=== PATIENT | male | born 1980 | race Caucasian/White ===

== ENCOUNTER 2017-04-27 07:52 | Emergency (ER) | payer MEDICAID ==
[~2017-04-27] VITALS: Ht 167.6 cm; Wt 127.3 kg
[2017-04-27 08:11] VITALS: BP 157/108
[2017-04-27] MEDS ORDERED: CIPROFLOXACIN HCL 0.2%/HYDROCORT 1% 10 ML OTIC SUSPENSION AD ONE (09:00)
[2017-05-09 17:27] LABS: GLUCOSE,POINT OF CARE 128 MG/DL (70-110)
== END 2017-04-27 10:37 | disposition home or self-care (01) ==
LOC: EDUNIT# 07:52 → EMS 07:56
DX: H60.91 Unspecified otitis externa, right ear (principal); E11.9 Type 2 diabetes mellitus without complications
CPT/HCPCS: 82962; 99283

== ENCOUNTER 2017-10-28 14:43 | Emergency (ER) | payer SELFPAY ==
[~2017-10-28] VITALS: Ht 170.2 cm; Wt 113.6 kg
[2017-10-28 15:37] LABS: GLUCOSE,POINT OF CARE 117 MG/DL (70-110)
[2017-10-28 16:17] LABS: APPEARANCE,URINE CLEAR (CLEAR); BILIRUBIN,URINE NEGATIVE (NEGATIVE); GLUCOSE, URINE (UA) NEGATIVE (NEGATIVE); KETONES,URINE NEGATIVE (NEGATIVE); LEUKOCYTE ESTERASE ,URINE SMALL (NEGATIVE); NITRATE,URINE NEGATIVE (NEGATIVE); OCCULT BLOOD,URINE TRACE (NEGATIVE); PROTEIN,URINE NEGATIVE (NEGATIVE)
[2017-10-28] MEDS ORDERED: ACETAMINOPHEN/CODEINE 300-30 MG TABLET PO ONE (16:30)
[2017-10-28 16:44] LABS: BACTERIA,URINE None Seen /HPF (None Seen); RBC,URINE 0-2 /HPF (0-2); SQUAMOUS EPITHELIAL CELL,UR Moderate /LPF (None Seen)
[2017-10-28] MEDS ORDERED: CefTRIAXone SODIUM 1 GM/VIAL IM ONE (17:00)
[2017-10-28] MEDS ORDERED: LIDOCAINE HCL/PF 1% 2 ML VIAL IM ONE (17:00)
[2017-10-28] MEDS ORDERED: DOXYCYCLINE 100 MG CAPSULE PO ONE (17:00)
[2017-10-28 17:26] VITALS: BP 141/81
== END 2017-10-28 17:56 | disposition home or self-care (01) ==
LOC: EMS 14:44
DX: L98.8 Other specified disorders of the skin and subcutaneous tissue (principal); N48.89 Other specified disorders of penis; E11.9 Type 2 diabetes mellitus without complications
CPT/HCPCS: 81001; 82962; 96372; 99283; J0696; J3490

== ENCOUNTER 2019-05-17 11:58 | Inpatient (IN) | payer MEDICAID ==
[~2019-05-17] VITALS: Ht 172.7 cm; Wt 118.5 kg
[2019-05-17] MEDS ORDERED: METF-960 PO (12:31)
[2019-05-17 13:51] LABS: GLUCOSE,POINT OF CARE 211 MG/DL (70-110)
[2019-05-17 15:10] LABS: BASOPHILS % (AUTO) 0.4 % (0.0-2.0); EOSINOPHILS % (AUTO) 0.1 % (1.0-6.0); HEMATOCRIT 44.6 % (41-53); HEMOGLOBIN 14.9 g/dL (13.5-17.5); LYMPHOCYTES # (AUTO) 1.7 K/uL (1.0-4.8); LYMPHOCYTES % (AUTO) 7.7 % (22.0-44.0); MEAN CORPUSCULAR HEMOGLOBIN 29.3 pg (26.0-34.0); MEAN CORPUSCULAR HGB CONC 33.4 G/dL (31.0-37.0); MEAN CORPUSCULAR VOLUME 88 fL (80-100); MONOCYTES # (AUTO) 2.1 K/uL (0.1-1.0); MONOCYTES % (AUTO) 9.8 % (2.0-9.0); NEUTROPHILS # (AUTO) 17.8 K/uL (1.8-7.7); PLATELET COUNT (AUTO) 229 K/uL (150-450); RED BLOOD CELL COUNT(AUTO) 5.07 MIL/uL (4.50-5.90); RED CELL DISTRIBUTION WIDTH 14.1 % (11.5-14.5)
[2019-05-17 15:23] LABS: APPEARANCE,URINE CLOUDY (CLEAR); GLUCOSE, URINE (UA) 100 mg/dL (NEGATIVE); KETONES,URINE TRACE mg/dL (NEGATIVE); LEUKOCYTE ESTERASE ,URINE MODERATE (NEGATIVE); NITRATE,URINE NEGATIVE (NEGATIVE); OCCULT BLOOD,URINE LARGE (NEGATIVE); PROTEIN,URINE SEE CONFIRM (NEGATIVE)
[2019-05-17 15:23] LABS: ALANINE AMINOTRANSFERASE 39 U/L (12-78); ALBUMIN 3.2 g/dL (3.4-5.0); ALKALINE PHOSPHATASE 121 U/L (46-116); ANION GAP 7 mmol/L (8-16); ASPARTATE AMINOTRANSFERASE 24 U/L (15-37); BILIRUBIN,TOTAL 0.7 mg/dL (0.1-1.0); CALCIUM, TOTAL 8.7 mg/dL (8.8-10.5); CARBON DIOXIDE 29 mmol/L (22-29); CHLORIDE 97 mmol/L (98-107); CREATININE 1.16 mg/dL (0.60-1.30); GLOMERULAR FILTR. RATE CALC > 60 mL/min (>60); GLUCOSE,RANDOM 189 mg/dL (70-110); POTASSIUM 3.8 mmol/L (3.5-5.1); SODIUM SERUM 133 mmol/L (136-145); TOTAL PROTEIN, SERUM 8.6 g/dL (6.4-8.2)
[2019-05-17 15:29] LABS: UREA NITROGEN, BLOOD 11 mg/dL (7-18)
[2019-05-17 15:30] LABS: BILIRUBIN,URINE PRELIM. POSITIVE (NEGATIVE)
[2019-05-17 15:42] LABS: LACTIC ACID 1.2 mmol/L (0.4-2.0)
[2019-05-17] MEDS ORDERED: KETOROLAC TROMETHAMINE 30 MG/ML VIAL IVP ONE (15:45)
[2019-05-17] MEDS ORDERED: SODIUM CHLORIDE 0.9% 1,000 ML IV ONE (15:45)
[2019-05-17] MEDS ORDERED: ONDANSETRON HCL 4 MG/2 ML VIAL IVP ONE (15:45)
[2019-05-17 15:49] LABS: RBC,URINE 26-50 /HPF (0-2); SULFOSALICYLIC ACID,URINE 4+ (Negative)
[2019-05-17 15:50] LABS: BACTERIA,URINE Moderate /HPF (None Seen); SQUAMOUS EPITHELIAL CELL,UR Few /LPF (None Seen); WBC,URINE 26-50 /HPF (0-5)
[2019-05-17 16:06] LABS: LIPASE 73 U/L (73-393)
[2019-05-17 16:16] LABS: INFLUENZA TYPE A NEGATIVE FOR TYPE A (NEGATIVE); INFLUENZA TYPE B NEGATIVE FOR TYPE B (NEGATIVE)
[2019-05-17] MEDS ORDERED: IOVERSOL 350 MG/ML 150 ML VIAL ONE (16:53)
[2019-05-17] MEDS ORDERED: CefTRIAXone 1 GM/DEXTROSE 50 ML IV ONE (18:00)
[2019-05-17] MEDS ORDERED: LEVOFLOXACIN 500 MG/D5% WATER 100 ML IV ONE (18:00)
[2019-05-17] MEDS ORDERED: ACETAMINOPHEN 325 MG TABLET PO PRN (20:15)
[2019-05-17] MEDS ORDERED: 0.9% SODIUM CHLORIDE 10 ML SYRINGE IVP PRN (20:15)
[2019-05-17] MEDS ORDERED: INFLUENZA VIRUS VACCINE QVS 2019-20 (3YR+)/PF 60 MCG/0.5 ML SYRINGE IM ONE (23:45)
[2019-05-18] VITALS (7 sets, daily range): BP systolic 118–146; BP diastolic 62–82
[2019-05-18] MEDS ORDERED: ZOLPIDEM TARTRATE 5 MG TABLET PO PRN (00:30)
[2019-05-18] MEDS ORDERED: ONDANSETRON HCL 4 MG/2 ML VIAL IVP PRN (00:30)
[2019-05-18] MEDS ORDERED: 0.9% SODIUM CHLORIDE 10 ML SYRINGE IVP PRN (00:30)
[2019-05-18] MEDS ORDERED: DEXTROSE 50%-WATER 25 GM/50 ML SYRINGE IVP PRN (00:30)
[2019-05-18] MEDS ORDERED: *CLINICAL-LEVOFLOXACIN IVPB DOSING CLINICAL ONE (00:30)
[2019-05-18] MEDS: ACETAMINOPHEN 325 MG TABLET PO PRN ×3 (06:11→21:52)
[2019-05-18] MEDS: INSULIN LISPRO 100 UNITS/ML SQ PRN ×4 (06:14→21:11)
[2019-05-18 06:24] LABS: BASOPHILS % (AUTO) 0.3 % (0.0-2.0); EOSINOPHILS % (AUTO) 0.2 % (1.0-6.0); HEMOGLOBIN 14.1 g/dL (13.5-17.5); LYMPHOCYTES # (AUTO) 1.1 K/uL (1.0-4.8); LYMPHOCYTES % (AUTO) 9.7 % (22.0-44.0); MEAN CORPUSCULAR HGB CONC 33.7 G/dL (31.0-37.0); MEAN CORPUSCULAR VOLUME 89 fL (80-100); MONOCYTES # (AUTO) 1.3 K/uL (0.1-1.0); MONOCYTES % (AUTO) 12.3 % (2.0-9.0); NEUTROPHILS # (AUTO) 8.5 K/uL (1.8-7.7); NEUTROPHILS % (AUTO) 77.5 % (40.0-70.0); PLATELET COUNT (AUTO) 204 K/uL (150-450); RED BLOOD CELL COUNT(AUTO) 4.72 MIL/uL (4.50-5.90); RED CELL DISTRIBUTION WIDTH 14.2 % (11.5-14.5)
[2019-05-18 06:25] LABS: GLUCOMETER DEV NAME(LOC) 6N.1; GLUCOSE,POINT OF CARE 154 MG/DL (70-110)
[2019-05-18] MEDS ORDERED: PNEUMOCOCCAL VACCINE POLYVALENT 0.5 ML VIAL [PPSV23] IM ONE (06:30)
[2019-05-18 06:45] LABS: ALANINE AMINOTRANSFERASE 34 U/L (12-78); ALBUMIN 2.6 g/dL (3.4-5.0); ALKALINE PHOSPHATASE 100 U/L (46-116); ANION GAP 8 mmol/L (8-16); ASPARTATE AMINOTRANSFERASE 29 U/L (15-37); BILIRUBIN,TOTAL 0.5 mg/dL (0.1-1.0); CALCIUM, TOTAL 8.3 mg/dL (8.8-10.5); CARBON DIOXIDE 28 mmol/L (22-29); CHLORIDE 99 mmol/L (98-107); CREATININE 1.09 mg/dL (0.60-1.30); GLOMERULAR FILTR. RATE CALC > 60 mL/min (>60); GLUCOSE,RANDOM 156 mg/dL (70-110); POTASSIUM 3.5 mmol/L (3.5-5.1); SODIUM SERUM 135 mmol/L (136-145); TOTAL PROTEIN, SERUM 7.7 g/dL (6.4-8.2); UREA NITROGEN, BLOOD 12 mg/dL (7-18)
[2019-05-18] MEDS ORDERED: MetFORMIN HCL 500 MG TABLET PO SCH (08:00)
[2019-05-18] MEDS: ENOXAPARIN SODIUM 40 MG/0.4 ML PF SYRINGE SQ SCH (08:23)
[2019-05-18] MEDS: PANTOPRAZOLE SODIUM 40 MG DR TABLET PO SCH (08:23)
[2019-05-18] MEDS ORDERED: DOCUSATE SODIUM 100 MG CAPSULE PO SCH (09:00)
[2019-05-18] MEDS: CefTRIAXone 1 GM/DEXTROSE 50 ML IV SCH (11:54)
[2019-05-18] MEDS: SODIUM CHLORIDE 0.9% 1,000 ML IV SCH ×2 (11:57→21:51)
[2019-05-18 12:15] LABS: GLUCOMETER DEV NAME(LOC) 6N.1; GLUCOSE,POINT OF CARE 151 MG/DL (70-110)
[2019-05-18] MEDS ORDERED: LEVOFLOXACIN 500 MG/D5% WATER 100 ML IV SCH (20:00)
[2019-05-18] MEDS ORDERED: LEVOFLOXACIN 750 MG/D5% WATER 150 ML IV SCH (20:00)
[2019-05-18 20:01] LABS: GLUCOMETER DEV NAME(LOC) 6N.1; GLUCOSE,POINT OF CARE 171 MG/DL (70-110)
[2019-05-19 04:25] VITALS: BP 131/74
[2019-05-19 05:08] LABS: GLUCOMETER DEV NAME(LOC) 6N.1; GLUCOSE,POINT OF CARE 204 MG/DL (70-110)
[2019-05-19 06:03] LABS: GLUCOMETER DEV NAME(LOC) 4E.2; GLUCOSE,POINT OF CARE 181 MG/DL (70-110)
[2019-05-19] MEDS: INSULIN LISPRO 100 UNITS/ML SQ PRN ×3 (06:33→17:43)
[2019-05-19 07:55] LABS: BASOPHILS % (AUTO) 0.3 % (0.0-2.0); EOSINOPHILS % (AUTO) 0.5 % (1.0-6.0); HEMATOCRIT 41.2 % (41-53); HEMOGLOBIN 14.1 g/dL (13.5-17.5); LYMPHOCYTES # (AUTO) 1.5 K/uL (1.0-4.8); LYMPHOCYTES % (AUTO) 18.3 % (22.0-44.0); MEAN CORPUSCULAR HEMOGLOBIN 30.3 pg (26.0-34.0); MEAN CORPUSCULAR HGB CONC 34.3 G/dL (31.0-37.0); MEAN CORPUSCULAR VOLUME 88 fL (80-100); MONOCYTES # (AUTO) 1.5 K/uL (0.1-1.0); MONOCYTES % (AUTO) 17.4 % (2.0-9.0); NEUTROPHILS # (AUTO) 5.3 K/uL (1.8-7.7); NEUTROPHILS % (AUTO) 63.5 % (40.0-70.0); PLATELET COUNT (AUTO) 224 K/uL (150-450); RED BLOOD CELL COUNT(AUTO) 4.66 MIL/uL (4.50-5.90); RED CELL DISTRIBUTION WIDTH 13.9 % (11.5-14.5)
[2019-05-19 07:59] LABS: ANION GAP 9 mmol/L (8-16); CARBON DIOXIDE 25 mmol/L (22-29); CHLORIDE 101 mmol/L (98-107); CREATININE 0.91 mg/dL (0.60-1.30); GLOMERULAR FILTR. RATE CALC > 60 mL/min (>60); GLUCOSE,RANDOM 160 mg/dL (70-110); POTASSIUM 3.6 mmol/L (3.5-5.1); SODIUM SERUM 135 mmol/L (136-145); UREA NITROGEN, BLOOD 9 mg/dL (7-18)
[2019-05-19 08:10] VITALS: BP 144/85
[2019-05-19] MEDS: PANTOPRAZOLE SODIUM 40 MG DR TABLET PO SCH (08:49)
[2019-05-19] MEDS: SODIUM CHLORIDE 0.9% 1,000 ML IV SCH ×2 (08:49→18:44)
[2019-05-19] MEDS: ENOXAPARIN SODIUM 40 MG/0.4 ML PF SYRINGE SQ SCH (08:49)
[2019-05-19] MEDS: CefTRIAXone 1 GM/DEXTROSE 50 ML IV SCH (11:23)
[2019-05-19] MEDS: ACETAMINOPHEN 325 MG TABLET PO PRN ×2 (11:28→21:00)
[2019-05-19 11:40] VITALS: BP 129/85
[2019-05-19 14:49] LABS: GLUCOMETER DEV NAME(LOC) 6N.2; GLUCOSE,POINT OF CARE 160 MG/DL (70-110)
[2019-05-19 16:04] VITALS: BP 154/84
[2019-05-19 17:22] LABS: GLUCOMETER DEV NAME(LOC) 6N.2; GLUCOSE,POINT OF CARE 165 MG/DL (70-110)
[2019-05-19 19:30] VITALS: BP 126/79
[2019-05-19] MEDS: GuaiFENesin SR 600 MG ER TABLET PO SCH (21:05)
[2019-05-19 22:07] LABS: GLUCOMETER DEV NAME(LOC) 6N.2; GLUCOSE,POINT OF CARE 136 MG/DL (70-110)
[2019-05-19 23:30] VITALS: BP 117/65
[2019-05-20 04:45] VITALS: BP 133/73
[2019-05-20] MEDS: ACETAMINOPHEN 325 MG TABLET PO PRN (04:59)
[2019-05-20] MEDS: SODIUM CHLORIDE 0.9% 1,000 ML IV SCH (05:05)
[2019-05-20 07:50] VITALS: BP 121/70
[2019-05-20 08:06] LABS: ANION GAP 11 mmol/L (8-16); CALCIUM, TOTAL 8.4 mg/dL (8.8-10.5); CARBON DIOXIDE 23 mmol/L (22-29); CHLORIDE 100 mmol/L (98-107); CREATININE 0.73 mg/dL (0.60-1.30); GLOMERULAR FILTR. RATE CALC > 60 mL/min (>60); GLUCOSE,RANDOM 147 mg/dL (70-110); POTASSIUM 3.8 mmol/L (3.5-5.1); SODIUM SERUM 134 mmol/L (136-145); UREA NITROGEN, BLOOD 9 mg/dL (7-18)
[2019-05-20] MEDS: GuaiFENesin SR 600 MG ER TABLET PO SCH ×2 (08:10→20:26)
[2019-05-20] MEDS: ENOXAPARIN SODIUM 40 MG/0.4 ML PF SYRINGE SQ SCH (08:10)
[2019-05-20] MEDS: DOCUSATE SODIUM 100 MG CAPSULE PO PRN (08:10)
[2019-05-20] MEDS: PANTOPRAZOLE SODIUM 40 MG DR TABLET PO SCH (08:10)
[2019-05-20 08:27] LABS: BASOPHILS % (AUTO) 0.5 % (0.0-2.0); EOSINOPHILS % (AUTO) 1.6 % (1.0-6.0); HEMATOCRIT 43.3 % (41-53); HEMOGLOBIN 14.3 g/dL (13.5-17.5); LYMPHOCYTES # (AUTO) 2.4 K/uL (1.0-4.8); LYMPHOCYTES % (AUTO) 26.3 % (22.0-44.0); MEAN CORPUSCULAR HEMOGLOBIN 29.5 pg (26.0-34.0); MEAN CORPUSCULAR HGB CONC 33.1 G/dL (31.0-37.0); MEAN CORPUSCULAR VOLUME 89 fL (80-100); MONOCYTES # (AUTO) 1.6 K/uL (0.1-1.0); MONOCYTES % (AUTO) 17.7 % (2.0-9.0); NEUTROPHILS % (AUTO) 53.9 % (40.0-70.0); RED BLOOD CELL COUNT(AUTO) 4.87 MIL/uL (4.50-5.90); RED CELL DISTRIBUTION WIDTH 14.2 % (11.5-14.5)
[2019-05-20 08:42] LABS: PLATELET COUNT (AUTO) 207 K/uL (150-450)
[2019-05-20] MEDS: CefTRIAXone 1 GM/DEXTROSE 50 ML IV SCH (11:00)
[2019-05-20 11:20] VITALS: BP 105/84
[2019-05-20] MEDS: INSULIN LISPRO 100 UNITS/ML SQ PRN ×3 (12:14→21:37)
[2019-05-20] MEDS ORDERED: *CLINICAL-RX DOSING [ENTER DRUG IN COMMENTS] CLINICAL ONE (12:45)
[2019-05-20 13:30] LABS: GLUCOMETER DEV NAME(LOC) 6N.2; GLUCOSE,POINT OF CARE 162 MG/DL (70-110)
[2019-05-20] MEDS: MEROPENEM 1 GM in SODIUM CHLORIDE 0.9% 100 ML IV SCH ×2 (13:41→20:26)
[2019-05-20 15:51] VITALS: BP 133/60
[2019-05-20] MEDS: TraMADol HCL 50 MG TABLET PO PRN (16:50)
[2019-05-20 20:43] VITALS: BP 135/89
[2019-05-20 23:08] LABS: GLUCOMETER DEV NAME(LOC) 6N.2; GLUCOSE,POINT OF CARE 144 MG/DL (70-110)
[2019-05-20 23:30] VITALS: BP 138/79
[2019-05-21 04:00] VITALS: BP 160/77
[2019-05-21 05:57] LABS: BASOPHILS % (AUTO) 0.4 % (0.0-2.0); EOSINOPHILS % (AUTO) 1.8 % (1.0-6.0); HEMATOCRIT 42.4 % (41-53); HEMOGLOBIN 14.7 g/dL (13.5-17.5); LYMPHOCYTES # (AUTO) 2.5 K/uL (1.0-4.8); LYMPHOCYTES % (AUTO) 24.1 % (22.0-44.0); MEAN CORPUSCULAR HEMOGLOBIN 30.2 pg (26.0-34.0); MEAN CORPUSCULAR HGB CONC 34.6 G/dL (31.0-37.0); MEAN CORPUSCULAR VOLUME 87 fL (80-100); MONOCYTES # (AUTO) 1.3 K/uL (0.1-1.0); MONOCYTES % (AUTO) 12.5 % (2.0-9.0); NEUTROPHILS # (AUTO) 6.5 K/uL (1.8-7.7); NEUTROPHILS % (AUTO) 61.2 % (40.0-70.0); PLATELET COUNT (AUTO) 271 K/uL (150-450); RED BLOOD CELL COUNT(AUTO) 4.86 MIL/uL (4.50-5.90); RED CELL DISTRIBUTION WIDTH 13.9 % (11.5-14.5)
[2019-05-21] MEDS: MEROPENEM 1 GM in SODIUM CHLORIDE 0.9% 100 ML IV SCH ×3 (05:57→21:01)
[2019-05-21 06:02] LABS: ANION GAP 9 mmol/L (8-16); CALCIUM, TOTAL 8.7 mg/dL (8.8-10.5); CARBON DIOXIDE 26 mmol/L (22-29); CHLORIDE 99 mmol/L (98-107); CREATININE 0.91 mg/dL (0.60-1.30); GLOMERULAR FILTR. RATE CALC > 60 mL/min (>60); GLUCOSE,RANDOM 149 mg/dL (70-110); POTASSIUM 4.2 mmol/L (3.5-5.1); SODIUM SERUM 134 mmol/L (136-145); UREA NITROGEN, BLOOD 11 mg/dL (7-18)
[2019-05-21] MEDS: INSULIN LISPRO 100 UNITS/ML SQ PRN ×2 (06:10→18:21)
[2019-05-21 06:15] LABS: GLUCOMETER DEV NAME(LOC) 4E.2; GLUCOSE,POINT OF CARE 142 MG/DL (70-110)
[2019-05-21 07:07] LABS: GLUCOMETER DEV NAME(LOC) 6N.2; GLUCOSE,POINT OF CARE 153 MG/DL (70-110)
[2019-05-21 07:35] VITALS: BP 148/80
[2019-05-21] MEDS: ENOXAPARIN SODIUM 40 MG/0.4 ML PF SYRINGE SQ SCH (08:05)
[2019-05-21] MEDS: GuaiFENesin SR 600 MG ER TABLET PO SCH ×2 (08:06→20:58)
[2019-05-21] MEDS: PANTOPRAZOLE SODIUM 40 MG DR TABLET PO SCH (08:06)
[2019-05-21] MEDS: DOCUSATE SODIUM 100 MG CAPSULE PO PRN (08:06)
[2019-05-21] MEDS: TraMADol HCL 50 MG TABLET PO PRN (08:06)
[2019-05-21 11:15] VITALS: BP 130/78
[2019-05-21 13:08] LABS: GLUCOMETER DEV NAME(LOC) 6N.2; GLUCOSE,POINT OF CARE 108 MG/DL (70-110)
[2019-05-21 15:15] VITALS: BP 149/93
[2019-05-21 17:53] LABS: GLUCOMETER DEV NAME(LOC) 6N.2; GLUCOSE,POINT OF CARE 148 MG/DL (70-110)
[2019-05-21 19:35] VITALS: BP 131/77
[2019-05-21] MEDS: SULFAMETHOX/TRIMETH DS 800-160 MG/TABLET PO SCH (20:58)
[2019-05-21 22:04] LABS: GLUCOMETER DEV NAME(LOC) 6N.2; GLUCOSE,POINT OF CARE 126 MG/DL (70-110)
[2019-05-21 23:35] VITALS: BP 124/70
[2019-05-22 05:13] VITALS: BP 109/74
[2019-05-22 05:26] LABS: BASOPHILS % (AUTO) 0.4 % (0.0-2.0); EOSINOPHILS % (AUTO) 2.8 % (1.0-6.0); HEMATOCRIT 44.5 % (41-53); LYMPHOCYTES # (AUTO) 2.5 K/uL (1.0-4.8); LYMPHOCYTES % (AUTO) 25.6 % (22.0-44.0); MEAN CORPUSCULAR HEMOGLOBIN 29.8 pg (26.0-34.0); MEAN CORPUSCULAR HGB CONC 33.8 G/dL (31.0-37.0); MEAN CORPUSCULAR VOLUME 88 fL (80-100); MONOCYTES # (AUTO) 1.1 K/uL (0.1-1.0); MONOCYTES % (AUTO) 11.2 % (2.0-9.0); NEUTROPHILS # (AUTO) 5.8 K/uL (1.8-7.7); PLATELET COUNT (AUTO) 321 K/uL (150-450); RED BLOOD CELL COUNT(AUTO) 5.05 MIL/uL (4.50-5.90); RED CELL DISTRIBUTION WIDTH 14.2 % (11.5-14.5)
[2019-05-22 05:37] LABS: ANION GAP 6 mmol/L (8-16); CALCIUM, TOTAL 8.9 mg/dL (8.8-10.5); CARBON DIOXIDE 29 mmol/L (22-29); CHLORIDE 100 mmol/L (98-107); CREATININE 0.84 mg/dL (0.60-1.30); GLOMERULAR FILTR. RATE CALC > 60 mL/min (>60); GLUCOSE,RANDOM 137 mg/dL (70-110); POTASSIUM 4.4 mmol/L (3.5-5.1); SODIUM SERUM 135 mmol/L (136-145); UREA NITROGEN, BLOOD 12 mg/dL (7-18)
[2019-05-22] MEDS: MEROPENEM 1 GM in SODIUM CHLORIDE 0.9% 100 ML IV SCH ×3 (06:19→20:35)
[2019-05-22 07:02] LABS: GLUCOMETER DEV NAME(LOC) 6N.2; GLUCOSE,POINT OF CARE 136 MG/DL (70-110)
[2019-05-22 07:38] VITALS: BP 157/75
[2019-05-22] MEDS: SULFAMETHOX/TRIMETH DS 800-160 MG/TABLET PO SCH ×2 (08:00→20:36)
[2019-05-22] MEDS: GuaiFENesin SR 600 MG ER TABLET PO SCH ×2 (08:01→20:35)
[2019-05-22] MEDS: PANTOPRAZOLE SODIUM 40 MG DR TABLET PO SCH (08:01)
[2019-05-22] MEDS: DOCUSATE SODIUM 100 MG CAPSULE PO PRN (08:01)
[2019-05-22] MEDS: ENOXAPARIN SODIUM 40 MG/0.4 ML PF SYRINGE SQ SCH (08:02)
[2019-05-22 11:26] VITALS: BP 117/71
[2019-05-22 11:58] LABS: GLUCOMETER DEV NAME(LOC) 6N.2; GLUCOSE,POINT OF CARE 159 MG/DL (70-110)
[2019-05-22 15:06] VITALS: BP 124/85
[2019-05-22 17:09] LABS: GLUCOMETER DEV NAME(LOC) 4E.2; GLUCOSE,POINT OF CARE 136 MG/DL (70-110)
[2019-05-22 20:00] VITALS: BP 129/76
[2019-05-22] MEDS: INSULIN LISPRO 100 UNITS/ML SQ PRN (20:37)
[2019-05-22 21:23] LABS: GLUCOMETER DEV NAME(LOC) 4E.2; GLUCOSE,POINT OF CARE 146 MG/DL (70-110)
[2019-05-22 23:58] VITALS: BP 128/62
[2019-05-23] MEDS: MEROPENEM 1 GM in SODIUM CHLORIDE 0.9% 100 ML IV SCH ×2 (05:09→12:55)
[2019-05-23] MEDS: INSULIN LISPRO 100 UNITS/ML SQ PRN (05:16)
[2019-05-23 05:18] VITALS: BP 124/71
[2019-05-23 05:41] LABS: BASOPHILS % (AUTO) 0.6 % (0.0-2.0); EOSINOPHILS % (AUTO) 2.5 % (1.0-6.0); HEMATOCRIT 43.3 % (41-53); HEMOGLOBIN 14.5 g/dL (13.5-17.5); LYMPHOCYTES # (AUTO) 2.9 K/uL (1.0-4.8); MEAN CORPUSCULAR HEMOGLOBIN 29.6 pg (26.0-34.0); MEAN CORPUSCULAR HGB CONC 33.6 G/dL (31.0-37.0); MEAN CORPUSCULAR VOLUME 88 fL (80-100); MONOCYTES # (AUTO) 1.1 K/uL (0.1-1.0); MONOCYTES % (AUTO) 9.5 % (2.0-9.0); NEUTROPHILS # (AUTO) 6.9 K/uL (1.8-7.7); NEUTROPHILS % (AUTO) 61.4 % (40.0-70.0); PLATELET COUNT (AUTO) 370 K/uL (150-450); RED BLOOD CELL COUNT(AUTO) 4.91 MIL/uL (4.50-5.90); RED CELL DISTRIBUTION WIDTH 14.1 % (11.5-14.5)
[2019-05-23 05:51] LABS: ANION GAP 7 mmol/L (8-16); CALCIUM, TOTAL 8.7 mg/dL (8.8-10.5); CARBON DIOXIDE 27 mmol/L (22-29); CHLORIDE 102 mmol/L (98-107); CREATININE 0.88 mg/dL (0.60-1.30); GLOMERULAR FILTR. RATE CALC > 60 mL/min (>60); GLUCOSE,RANDOM 145 mg/dL (70-110); POTASSIUM 4.2 mmol/L (3.5-5.1); SODIUM SERUM 136 mmol/L (136-145); UREA NITROGEN, BLOOD 15 mg/dL (7-18)
[2019-05-23 08:10] VITALS: BP 125/78
[2019-05-23] MEDS: PANTOPRAZOLE SODIUM 40 MG DR TABLET PO SCH (08:24)
[2019-05-23] MEDS: SULFAMETHOX/TRIMETH DS 800-160 MG/TABLET PO SCH (08:24)
[2019-05-23] MEDS: ENOXAPARIN SODIUM 40 MG/0.4 ML PF SYRINGE SQ SCH (08:24)
[2019-05-23] MEDS: DOCUSATE SODIUM 100 MG CAPSULE PO PRN (08:24)
[2019-05-23] MEDS: GuaiFENesin SR 600 MG ER TABLET PO SCH (08:24)
[2019-05-23 08:35] LABS: GLUCOMETER DEV NAME(LOC) 4E.2; GLUCOSE,POINT OF CARE 146 MG/DL (70-110)
[2019-05-23 11:24] LABS: GLUCOMETER DEV NAME(LOC) 4E.2; GLUCOSE,POINT OF CARE 104 MG/DL (70-110)
[2019-05-23 12:12] VITALS: BP 108/58
[2019-05-23] MEDS ORDERED: BACTDSB PO (12:33)
[2019-05-23] MEDS ORDERED: TRAM50TA4 PO (12:33)
== END 2019-05-23 12:35 | disposition home or self-care (01) | DRG 720 ==
LOC: EMS 11:59 → 6N 22:29 → 4E 05-18 21:28
PROVIDERS: ADMIT Internal Medicine; ATTEND Internal Medicine
DX: A41.51 Sepsis due to Escherichia coli [E. coli] (principal); E87.1 Hypo-osmolality and hyponatremia; R65.20 Severe sepsis without septic shock; E86.0 Dehydration; E11.9 Type 2 diabetes mellitus without complications; E86.1 Hypovolemia; N39.0 Urinary tract infection, site not specified; N10 Acute pyelonephritis; Z16.12 Extended spectrum beta lactamase (ESBL) resistance; Z82.49 Family history of ischemic heart disease and other diseases of the circulatory system; Z83.3 Family history of diabetes mellitus; Z91.19 Patient's noncompliance with other medical treatment and regimen; Z79.899 Other long term (current) drug therapy
CPT/HCPCS: 74177; 76705; 76770; 83605; 83735; 87040; 87086; 87205; 87804; 96365; 96375; G0378; J0696; J1650; J1885; J1956; J2185; J2405; J7030; J7050